=== PATIENT | female | born 1990 | race Caucasian/White ===

== ENCOUNTER 2018-11-16 23:09 | Emergency (ER) | payer MEDICAID ==
[~2018-11-16] VITALS: Ht 152.4 cm; Wt 52.3 kg
[2018-11-16 23:11] VITALS: BP 107/54
[2018-11-17] MEDS ORDERED: acetaminophen 325mg tablet PO ONE (00:35)
[2018-11-17] MEDS ORDERED: ketorolac trometh inj. 60 MG/2 ML VIAL IM ONE (00:35)
== END 2018-11-17 00:52 | disposition home or self-care (01) ==
LOC: ER 23:09
DX: S50.11XA Contusion of right forearm, initial encounter (principal); M25.531 Pain in right wrist; W01.0XXA Fall on same level from slipping, tripping and stumbling without subsequent striking against object, initial encounter; Y93.89 Activity, other specified; Y92.89 Other specified places as the place of occurrence of the external cause; Y99.8 Other external cause status
CPT/HCPCS: 73090; 96372; 99283; J1885